=== PATIENT | female | born 2000 | race Caucasian/White ===

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

== ENCOUNTER → 2021-02-12 | Outpatient (CLI) | payer OTHER ==
[2021-02-12 23:45] LABS: Basophils # (A) 0.06 X 10*3/uL (0.00-0.10); Basophils % (A) 0.9 %; Eosinophils # (A) 0.44 X 10*3/uL (0.04-0.35); Eosinophils % (A) 6.6 %; HCT 39.9 % (37.2-46.3); Lymphocytes # (A) 1.72 X 10*3/uL (0.90-5.00); Lymphocytes % (A) 25.6 %; MCH 30.5 pg (27.0-32.0); MCHC 32.6 g/dL (32.0-37.0); MCV 93.7 fL (80.0-97.0); Mean Platelet Volume 11.9 fL (9.5-12.2); Monocytes # (A) 0.32 X 10*3/uL (0.20-1.00); Monocytes % (A) 4.8 %; Neutrophils # (A) 4.14 X 10*3/uL (1.80-7.70); Neutrophils % (A) 61.7 %; Platelet Count 221 X 10*3/uL (140-440); RBC 4.26 X 10*6/uL (4.10-5.20); RDW 12.1 % (11.5-14.5); WBC 6.71 X 10*3/uL (4.50-10.00)
[2021-02-13 01:09] LABS: African American GFR (CKD) 145.6 (60.0-200.0); Anion Gap 12.6 mmol/L (4.00-12.00); BUN/Creat Ratio 17.71 Ratio (12.00-20.00); Blood Urea Nitrogen 12.4 mg/dL (9.0-27.0); Calcium 9.2 mg/dL (8.7-10.3); Carbon Dioxide 19.4 mmol/L (21.6-31.8); Non-African American GFR(CKD) 125.6 (60.0-200.0)
== END | disposition home or self-care (01) ==
LOC: LABWHC1 15:58
PROVIDERS: ATTEND Family Medicine
DX: R00.2 Palpitations (principal)
CPT/HCPCS: 36415; 80048; 84443; 85025

== ENCOUNTER 2021-07-11 23:42 | Emergency (ER) | payer OTHER ==
[2021-07-11 23:51] VITALS: BP 118/70; RESP 18
[2021-07-11] MEDS ORDERED: ACETAMINOPHEN TAB 325 MG TAB PO STA (23:56)
[2021-07-12 01:53] VITALS: PULSE 120; TEMP 98.8
--- NOTE | 2021-07-12 01:54 | ED ---
Fever HPI - General Chief Complaint: Shortness of Breath Stated Complaint: Fever, 24 wks Time Seen by Provider: 07/12/21 01:19 Source: patient, RN notes reviewed, old records reviewed Mode of arrival: ambulatory Limitations: no limitations - History of Present Illness Initial Comments: This is a 20-year-old female DF today for evaluation of fever. Patient Dese for evaluation of fever cough congestion bodyaches pains. Patient is 19 weeks . She is taking Tylenol at home for the fever no other medications. She has no dysuria no diarrhea no nausea nausea vomiting currently. No abdominal pain currently. MD Complaint: fever, malaise -: days(s) Temperature Source: subjective Context: sick contacts Associated Symptoms: chills, myalgias, sore throat Treatments Prior to Arrival: Acetaminophen - Related Data Home Medications Medication Instructions Recorded Confirmed Citalopram Hydrobromide [CeleXA] 10 mg PO DAILY 06/07/16 06/07/16 Melatonin 3 mg PO HS PRN 06/07/16 06/07/16 Previous Rx's Medication Instructions Recorded Ciprofloxacin HCl [Cipro] 500 mg PO Q12HR #28 tablet 01/06/20 Ondansetron Odt [Zofran Odt] 4 mg PO Q8HR PRN 3 Days #9 tab 07/12/20 Allergies Allergy/AdvReac Type Severity Reaction Status Date / Time Penicillins Allergy Rash/Hives Verified 07/12/21 00:04 Review of Systems ROS Statement: Those systems with pertinent positive or pertinent negative responses have been documented in the HPI. ROS Other: All systems not noted in ROS Statement are negative. Past Medical History Past Medical History: No Reported History History of Any Multi-Drug Resistant Organisms: None Reported Past Surgical History: No Surgical Hx Reported Past Psychological History: Anxiety, Depression Smoking Status: Vaper Past Alcohol Use History: None Reported Past Drug Use History: None Reported General Exam Limitations: no limitations General appearance: alert, in no apparent distress Head exam: Present: atraumatic, normocephalic, normal inspection Eye exam: Present: normal appearance, PERRL, EOMI. Absent: scleral icterus, conjunctival injection, periorbital swelling ENT exam: Present: normal exam, mucous membranes moist Neck exam: Present: normal inspection. Absent: tenderness, meningismus, lymphadenopathy Respiratory exam: Present: normal lung sounds bilaterally. Absent: respiratory distress, wheezes, rales, rhonchi, stridor Cardiovascular Exam: Present: normal rhythm, tachycardia, normal heart sounds. Absent: systolic murmur, diastolic murmur, rubs, gallop, clicks GI/Abdominal exam: Present: soft, normal bowel sounds. Absent: distended, tenderness, guarding, rebound, rigid Extremities exam: Present: normal inspection, full ROM, normal capillary refill. Absent: tenderness, pedal edema, joint swelling, calf tenderness Back exam: Present: normal inspection Neurological exam: Present: alert, oriented X3, CN II-XII intact Psychiatric exam: Present: normal affect, normal mood Skin exam: Present: warm, dry, intact, normal color. Absent: rash Course Vital Signs 07/11/21 07/12/21 07/12/21 23:47 01:20 01:52 Temperature 101.2 F H 98.8 F Pulse Rate 132 H 120 H Respiratory 18 18 18 Rate Blood Pressure 118/70 O2 Sat by Pulse 98 97 Oximetry - Reevaluation(s) Reevaluation #1: 07/12/21 Medical record is reviewed Patient symptoms are improved here in the emergency department Patient informed results and questions answered Medical Decision Making - Medical Decision Making 20-year-old female to the emergency department for evaluation 19 weeks with fever. Patient is positive for influenza. Patient encouraged to take Tylenol rest drink a lot of fluids and can be discharged home - Lab Data Lab Results 07/12/21 Range/Units 00:00 Influenza Type A (PCR) Detected A (Not Detectd) Influenza Type B (PCR) Not Detected (Not Detectd) RSV (PCR) Not Detected (Not Detectd) SARS-CoV-2 (PCR) Not Detected (Not Detectd) Disposition Clinical Impression: Fever, Influenza A Disposition: HOME SELF-CARE Condition: Good Instructions (If sedation given, give patient instructions): Influenza (ED) Is patient prescribed a controlled substance at d/c from ED?: No Referrals: William Sibley MD [Primary Care Provider] - 1-2 days
== END 2021-07-12 01:58 | disposition home or self-care (01) ==
LOC: EC 23:42
DX: O98.512 Other viral diseases complicating pregnancy, second trimester (principal); J10.1 Influenza due to other identified influenza virus with other respiratory manifestations; O99.342 Other mental disorders complicating pregnancy, second trimester; F32.A Depression, unspecified; F41.9 Anxiety disorder, unspecified; O99.331 Smoking (tobacco) complicating pregnancy, first trimester; F17.290 Nicotine dependence, other tobacco product, uncomplicated; Z79.899 Other long term (current) drug therapy; Z3A.19 19 weeks gestation of pregnancy; Z88.0 Allergy status to penicillin; Z20.822 Contact with and (suspected) exposure to COVID-19
CPT/HCPCS: 87636; 99283

== ENCOUNTER 2021-09-10 19:59 | Outpatient (CLI) | payer OTHER ==
[2021-09-10 20:46] LABS: Appearance,Urine Clear (Clear); Bacteria,Urine Rare /hpf; Bilirubin,Urine Negative (Negative); Blood,Urine Large (Negative); Color,Urine Yellow; Glucose,Urine (UA) Negative (Negative); Ketones,Urine Negative (Negative); Leukocyte Esterase,Urine Large (Negative); Mucus,Urine Rare /hpf; Nitrite,Urine Negative (Negative); Protein,Urine Trace (Negative); RBC,Urine >182 /hpf (0-5); Specific Gravity,Urine 1.013 (1.001-1.035); Squamous Epithelial Cell,Urine 3 /hpf (0-4); Urobilinogen,Urine <2.0 mg/dL (<2.0); WBC,Urine 59 /hpf (0-5)
[2021-09-10 21:14] VITALS: BP 129/75; PULSE 100; RESP 18; TEMP 98
--- NOTE | 2021-09-27 10:55 | P.MSEPDOC ---
Presenting Problems - Arrival Data Date of Arrival on Unit: 09/10/21 Time of Arrival on Unit: 19:59 Mode of Transport: Ambulatory - Complaint OB-Reason for Admission/Chief Complaint: Other Comment: Bloody Urine, cramping. Medical History - Information : 1 Para: 0 Term: 0 : 0 Abortions: Spontaneous or Elective: 0 Number of Living Children: 0 - Gestational Age Gestational Age by CHARU (wks/days): 33 Weeks and 1 Days Review of Systems - Review of Systems Constitutional: No problems Breast: No problems ENT: No problems Cardiovascular: No problems Respiratory: No problems Gastrointestinal: No problems Genitourinary: Increased frequency Musculoskeletal: No problems Neurological: No problems Skin: No problems Vital Signs - Temperature Temperature: 98.0 F Temperature Source: Oral - Pulse Right Brachial Pulse Rate: 100 Pulse Assessment Method: Automatic Cuff - Respirations Respiratory Rate: 18 Oxygen Delivery Method: Room Air O2 Sat by Pulse Oximetry: 98 - Blood Pressure Right Arm Blood Pressure: 129/75 Blood Pressure Mean: 93 Blood Pressure Source: Automatic Cuff Physician Notification - Physician Notified Physician Notified Date: 09/10/21 Physician Notified Time: 20:55 Physician: Fidencio Sánchez New Order Received: Yes - Notification Comment Comment: Dr. Sánchez called. aware of pt c/o. Report given. Reactive NST. VS WNL. No contractions noted per monitor. UA results readback to Orders to discharge pt home. to send in AB[facility] script to [facility] [address]. RN to instruct pt to knot picker cloth prescription after d/c. Maternal Triage Index - Non-Urgent/Priority 4 Non-Urgent Priority 4: Yes Criteria Met for Priority 4: Bloody Urine, frequency, cramping. Disposition - Disposition OB Disposition: Discharge to home Discharge Date: 09/10/21 Discharge Time: 21:00 I agree with the RN Medical Screening Exam: Yes Physician's MSE Comment: I have neither seen nor examined the patient. Case reviewed; plan agreed upon as documented in EMR&OBIX.: Yes Diagnosis: RELATED CONDITIONS, UNSPECIFIED, THIRD TRIMESTER
== END 2021-09-10 21:00 | disposition home or self-care (01) ==
LOC: FBPOP 19:59
PROVIDERS: ATTEND Obstetrics & Gynecology
DX: O26.93 Pregnancy related conditions, unspecified, third trimester (principal); Z3A.33 33 weeks gestation of pregnancy
CPT/HCPCS: 59025; 81001; G0463; 99213

== ENCOUNTER 2021-10-22 06:00 | Inpatient (IN) | payer OTHER ==
[2021-10-22] MEDS ORDERED: CARBOPROST TROMETHAMINE 250 MCG/ML 1 ML AMP IM PRN (06:21)
[2021-10-22] MEDS ORDERED: OXYTOCIN 10 UNIT/ML 1 ML VIAL IM PRN (06:21)
[2021-10-22] MEDS ORDERED: LIDOCAINE 0.5% (PF) 5 MG/ML (50 ML SDV) SQ PRN (06:21)
[2021-10-22] MEDS ORDERED: TERBUTALINE 1 MG/ML VIAL SQ PRN (06:21)
[2021-10-22] MEDS ORDERED: METHYLERGONOVINE 0.2 MG/ML 1 ML AMP IM PRN (06:21)
[2021-10-22] MEDS ORDERED: OXYTOCIN 30 UNITS/500 ML NS 30 UNIT in SALINE 1 500ML.BAG IV SCH (06:30)
[2021-10-22] MEDS: LACTATED RINGERS 1,000 ML IV SCH ×3 (06:31→14:36)
[2021-10-22 06:58] LABS: Basophils # (A) 0.1 k/uL (0-0.2); Basophils % (A) 0 %; Eosinophils # (A) 0.4 k/uL (0-0.7); Eosinophils % (A) 3 %; HCT 33.1 % (34.0-46.0); Lymphocytes # (A) 2.5 k/uL (1.0-4.8); Lymphocytes % (A) 17 %; MCH 29.6 pg (25.0-35.0); MCHC 33.2 g/dL (31.0-37.0); MCV 89.2 fL (80.0-100.0); Mean Platelet Volume 10.1; Monocytes # (A) 0.6 k/uL (0-1.0); Monocytes % (A) 4 %; Neutrophils # (A) 11.2 k/uL (1.3-7.7); Neutrophils % (A) 75 %; Platelet Count 232 k/uL (150-450); RBC 3.71 m/uL (3.80-5.40); RDW 13.5 % (11.5-15.5); WBC 14.9 k/uL (4.0-11.0)
--- NOTE | 2021-10-22 07:43 | P.HPOB ---
History of Present Illness H&P Date: 10/22/21 Chief Complaint: Here for induction of labor This is a 21-year-old white female 1 para 0 EDC 10/29/2021 at 39 weeks gestation who presents today for induction with a history of vascular latex noted sonographically in the placenta. She has been followed by weekly non stress testing, all of which has been reassuring. She denies fluid leakage or vaginal bleeding. Fetus is been active throughout the . Past medical history is significant for anxiety. Past surgical history is negative. Current medications vitamins daily. ALLERGIES include penicillin, reaction unknown stated. Social history patient is single, father of the baby is present. She works at a local [employer]. She denies alcohol tobacco or drug use. history blood type is A+, rubella status immune. VDRL testing, urine culture, gonorrhea and chlamydia cultures, hepatitis B surface antigen, HIV testing, group B strep cultures all negative. One-hour Glucola 116. On exam patient is 5 foot 3 inches, 170 pounds, initial blood pressure 139/81. The general physical exam is within normal limits. Chest is clear in all rincon. Extremities reveal no edema. Cervix is 3 cm dilated, 80% effaced, -2 station, vertex presentation. Artificial amniorrhexis reveals clear fluid. heart rate is consistent with reactive NST. No uterine contractions are noted at this time. Impression: 39 week intrauterine , sonographic evidence of large vascular latex in the placenta, otherwise all signs reassuring. Plan: Continue oxytocin per hospital protocol. Continue close maternal and surveillance. Analgesic options have been reviewed. Anticipate normal spontaneous vaginal delivery. Placenta will be sent to pathology for further evaluation. Review of Systems Constitutional: Reports as per HPI Past Medical History Past Medical History: No Reported History History of Any Multi-Drug Resistant Organisms: None Reported Past Surgical History: No Surgical Hx Reported Past Anesthesia/Blood Transfusion Reactions: No Reported Reaction Past Psychological History: Anxiety, Depression Smoking Status: Never smoker Past Alcohol Use History: None Reported Past Drug Use History: None Reported - Past Family History Mother Family Medical History: No Reported History Medications and Allergies Home Medications Medication Instructions Recorded Confirmed Type Pnv No.95/Ferrous Fum/Folic AC 1 tab PO ONCE 09/10/21 10/22/21 History [ Multivitamin Tablet] Allergies Allergy/AdvReac Type Severity Reaction Status Date / Time Penicillins Allergy Rash/Hives Verified 09/10/21 20:09 Exam Vital Signs Temp Pulse Resp BP 10/22/21 06:17 96.7 F L 93 16 139/81 Intake and Output 10/21/21 10/22/21 10/22/21 22:59 06:59 14:59 Other: Weight 77.111 kg See dictation under HPI please Results Result Diagrams: 10/22/21 06:40 Abnormal Lab Results - Last 24 Hours (Table) 10/22/21 Range/Units 06:40 WBC 14.9 H (4.0-11.0) k/uL RBC 3.71 L (3.80-5.40) m/uL Hgb 11.0 L (11.4-16.0) gm/dL Hct 33.1 L (34.0-46.0) % Neutrophils # 11.2 H (1.3-7.7) k/uL Assessment and Plan Assessment: 39 week intrauterine , large vascular lakes noted sonographically in the placenta, here for induction of labor, all signs reassuring. Plan: Oxytocin per hospital protocol. Continue close maternal and surveillance. Analgesic options reviewed. Anticipate normal spontaneous vaginal delivery. Time with Patient: Less than 30
[2021-10-22] MEDS ORDERED: diphenhydrAMINE ELIXIR 25 MG/10 ML CUP PO PRN (16:09)
[2021-10-22] MEDS ORDERED: BENZOCAINE/MENTHOL SPRAY 1 GM/SPRAY AEROSOL TOPICAL PRN (16:09)
[2021-10-22] MEDS ORDERED: ZOLPIDEM 5 MG TAB PO PRN (16:09)
[2021-10-22] MEDS ORDERED: LANOLIN CREAM 5 GM TUBE TOPICAL PRN (16:09)
[2021-10-22] MEDS ORDERED: diphenhydrAMINE 50 MG CAP PO PRN (16:09)
[2021-10-22] MEDS ORDERED: SIMETHICONE 80 MG CHEWABLE PO PRN (16:09)
[2021-10-22] MEDS ORDERED: diphenhydrAMINE 25 MG CAP PO PRN (16:09)
[2021-10-22] MEDS ORDERED: HYDROCORTISONE 2.5% RECTAL CREAM 30 GM TUBE RECTAL PRN (16:09)
[2021-10-22] MEDS ORDERED: ACETAMINOPHEN TAB 325 MG TAB PO PRN (16:09)
[2021-10-22] MEDS ORDERED: diphenhydrAMINE 50 MG/ML 1 ML VIAL IVP PRN ×2 (16:09)
--- NOTE | 2021-10-22 16:09 | P.PROBDLV ---
Vaginal Delivery Note - . Vaginal Delivery Note: This is a 21-year-old female 1 para 0 EDC 10/29/2021 at 39 weeks gestation who presented for induction, with sonographic evidence of increased vascular watkins noted in the placenta. She has been followed by weekly nonstress testing, all of it has been reactive. Please see admitting history and physical for details. Patient was admitted and artificial amniorrhexis revealed clear fluid. And titrated per hospital protocol. Ultimately epidural was placed per her request, placement unremarkable. Patient progressed to the first stage of labor was judged to be completely dilated at 1518 hrs. She was allowed to "labor down" for approximate 20 minutes. Perineal body was then prepped and draped in usual sterile fashion. With excellent maternal expulsive efforts the 's head very quickly crowned in the occiput anterior position. There is no nuchal cord noted. The left or anterior shoulder was gently delivered from underneath the pubic symphysis at which time the oropharynx, nasopharynx, and external nares were bulb suctioned. Patient was officially delivered of a liveborn female infant at 1548 hrs. Umbilical cord was clamped and ligated, she was handed to waiting nurses for evaluation where scores of 8 and 9 at one and 5 minutes respectively were given. Placenta delivered spontaneously, it was inspected and noted to be intact with trivascular cord at 1556 hrs. It was sent to pathology for further evaluation. Uterus is then massaged. Careful inspection of the cervix, vagina, perineum, periurethral, and perirectal areas revealed a small right labial first-degree perineal laceration easily repaired in the usual fashion with repeat suture. Excellent reapproximation was noted. All sponge needle and enhancement counts are correct. Total estimated blood loss 200 mL's. Infant weighs 7 lbs. 12 oz. or 3520 g. Patient and her family are allowed to begin the bonding experience in the LDR.
[2021-10-22] MEDS: IBUPROFEN 600 MG TAB PO SCH (18:29)
[2021-10-22] MEDS: SENNA LEAF EXTRACT SYRUP 528 MG/15 ML CUP PO SCH (22:42)
[2021-10-22] MEDS: SENNOSIDES-DOCUSATE SODIUM 1 EACH TAB PO SCH (22:43)
[2021-10-23] MEDS: IBUPROFEN 600 MG TAB PO SCH ×5 (05:32→18:12)
[2021-10-23] MEDS: SENNOSIDES-DOCUSATE SODIUM 1 EACH TAB PO SCH ×2 (08:05→19:45)
[2021-10-23] MEDS: SENNA LEAF EXTRACT SYRUP 528 MG/15 ML CUP PO SCH (09:07)
--- NOTE | 2021-10-23 09:08 | P.DS ---
Providers Date of admission: 10/22/21 06:05 Expected date of discharge: 10/23/21 Attending physician: Tatyana Tovar Primary care physician: Stated None Hospital Course: This is a 21-year-old white female 1 para 0 EDC 10/29/2021 who presented at 39 weeks with a favorable cervix for induction of labor, is remarkable for prominent vascular [place] noted sonographically in the placenta. otherwise unremarkable, weekly nonstress testing reactive, please see dictated history and physical for details. Patient delivered spontaneously a liveborn female infant with scores of 8 and 9 at one and 5 minutes respectively she weighed 7 lbs. 12 oz. or 3520 g. There was a first-degree perineal laceration easily repaired. Please see dictated delivery note for details. The patient this morning is doing quite well. She is voiding, ambulating, passing flatus without difficulty. Vital signs are stable and she is afebrile. Fundus is firm and in the midline, symmetric and 18 week size. Extremities are negative for edema. Randolph is doing well. Placenta was sent to pathology for further evaluation. Plan patient is judged to be in very good condition for discharge home. She will follow-up with me in the office in 6 weeks. I have reminded her no intercourse, tampons or douching. She will use [id number] Advil or Aleve, or ibuprofen as needed for pain. She will call with any fevers shakes or chills, foul smelling or copious lochia, with the passage of large blood clots, or indeed with any concerns. Patient has good family support and appears to be doing well with the . Assessment: Doing well first day Patient Condition at Discharge: Good Plan - Discharge Summary Discharge Rx Participant: No New Discharge Prescriptions: No Action Pnv No.95/Ferrous Fum/Folic AC [ Multivitamin Tablet] 1 tab PO ONCE Discharge Medication List Pnv No.95/Ferrous Fum/Folic AC [ Multivitamin Tablet] 1 tab PO ONCE 09/10/21 [History] Follow up Appointment(s)/Referral(s): Tatyana Tovar MD [STAFF PHYSICIAN] - 6 Weeks Discharge Disposition: HOME SELF-CARE
[2021-10-24 09:28] VITALS: BP 111/68; PULSE 80; RESP 14; TEMP 97.9
[2021-10-24] MEDS: SENNOSIDES-DOCUSATE SODIUM 1 EACH TAB PO SCH ×2 (09:30→13:15)
[2021-10-24] MEDS: IBUPROFEN 600 MG TAB PO SCH ×2 (09:30→11:18)
== END 2021-10-24 15:15 | disposition home or self-care (01) | DRG 807 ==
LOC: 4FBP 06:05
PROVIDERS: ADMIT Obstetrics & Gynecology; ATTEND Obstetrics & Gynecology
PROC: 10E0XZZ Delivery of Products of Conception, External Approach (ICD-10-PCS; principal; 2021-10-22)
PROC: 0HQ9XZZ Repair Perineum Skin, External Approach (ICD-10-PCS; 2021-10-22)
PROC: 10907ZC Drainage of Amniotic Fluid, Therapeutic from Products of Conception, Via Natural or Artificial Opening (ICD-10-PCS; 2021-10-22)
PROC: 3E033VJ Introduction of Other Hormone into Peripheral Vein, Percutaneous Approach (ICD-10-PCS; 2021-10-22)
PROC: 4A0HXCZ Measurement of Products of Conception, Cardiac Rate, External Approach (ICD-10-PCS; 2021-10-22)
DX: O99.344 Other mental disorders complicating childbirth (principal); Z37.0 Single live birth; O70.0 First degree perineal laceration during delivery; Z88.0 Allergy status to penicillin; F32.A Depression, unspecified; F41.9 Anxiety disorder, unspecified; Z3A.39 39 weeks gestation of pregnancy
CPT/HCPCS: 85025; 86850; 86900; 86901

== ENCOUNTER → 2023-01-20 | Outpatient (CLI) | payer OTHER ==
[2023-01-20 16:58] LABS: T4, Free (Free Thyroxine) 1.39 ng/dL (0.80-1.80)
[2023-01-20 19:56] LABS: Gliadin AB IgA, Deaminated Negative (Negative); Gliadin AB IgG, Deaminated Negative (Negative); Gliadin AB IgG, Unit 0.8 U/mL
== END | disposition home or self-care (01) ==
LOC: LABWHC1 13:08
PROVIDERS: ATTEND Internal Medicine Gastroenterology
DX: K52.9 Noninfective gastroenteritis and colitis, unspecified (principal)
CPT/HCPCS: 36415; 83516; 84439; 84443; 85652

== ENCOUNTER 2023-12-09 16:38 | Emergency (ER) | payer OTHER ==
[2023-12-09 16:43] VITALS: RESP 18
--- NOTE | 2023-12-09 17:03 | ED ---
Female Urogenital HPI - General Chief complaint: Urogenital Stated complaint: painful urination/15 wks Time Seen by Provider: 12/09/23 17:01 Source: patient, RN notes reviewed Mode of arrival: ambulatory Limitations: no limitations - History of Present Illness Initial comments: 23-year-old female at 15 weeks gestation presenting with dysuria x 1 day with associated urinary frequency, urinary urgency, and suprapubic pain. Denies fever, chills, vomiting, back pain. Denies vaginal discharge. Follows regularly with OB for care. - Related Data Home Medications Medication Instructions Recorded Confirmed Pnv No.95/Ferrous Fum/Folic AC 1 tab PO ONCE 09/10/21 10/22/21 [ Multivitamin Tablet] Previous Rx's Medication Instructions Recorded Nitrofurantoin Monohyd/M-Cryst 100 mg PO Q12HR 5 Days #10 cap 12/09/23 [Macrobid] Allergies Allergy/AdvReac Type Severity Reaction Status Date / Time Penicillins Allergy Rash/Hives Verified 09/10/21 20:09 Review of Systems ROS Statement: Those systems with pertinent positive or pertinent negative responses have been documented in the HPI. ROS Other: All systems not noted in ROS Statement are negative. Past Medical History Past Medical History: No Reported History History of Any Multi-Drug Resistant Organisms: None Reported Past Surgical History: No Surgical Hx Reported Past Anesthesia/Blood Transfusion Reactions: No Reported Reaction Past Psychological History: Anxiety, Depression Smoking Status: Never smoker Past Alcohol Use History: None Reported Past Drug Use History: None Reported - Past Family History Mother Family Medical History: No Reported History General Exam Limitations: no limitations General appearance: alert, in no apparent distress Head exam: Present: atraumatic, normocephalic, normal inspection GI/Abdominal exam: Present: soft, tenderness (Suprapubic tenderness to palpation, no abdominal tenderness), normal bowel sounds. Absent: distended, guarding, rebound, rigid Extremities exam: Present: normal inspection, full ROM, normal capillary refill. Absent: tenderness, pedal edema, joint swelling, calf tenderness Back exam: Present: normal inspection. Absent: CVA tenderness (R), CVA tenderness (L) Neurological exam: Present: alert, oriented X3 Psychiatric exam: Present: normal affect, normal mood Skin exam: Present: warm, dry, intact, normal color. Absent: rash Course Vital Signs 12/09/23 16:40 Temperature 99.0 F Pulse Rate 107 H Respiratory 18 Rate Blood Pressure 124/80 O2 Sat by Pulse 98 Oximetry Medical Decision Making - Medical Decision Making Was pt. sent in by a medical professional or institution ([facility] Crawley, [employer], urgent care, hospital, or skilled nursing...) When possible be specific @ -No Did you speak to anyone other than the patient for history (EMS, parent, family, police, friend...)? What history was obtained from this source @ -No Did you review nursing and triage notes (agree or disagree)? Why? @ -I reviewed and agree with nursing and triage notes Were old charts reviewed (outside hosp., previous admission, EMS record, old EKG, old radiological studies, urgent care reports/EKG's, skilled nursing records)? Report findings @ -No old charts were reviewed Differential Diagnosis (chest pain, altered mental status, abdominal pain women, abdominal pain men, vaginal bleeding, weakness, fever, dyspnea, syncope, hea dache, dizziness, GI bleed, back pain, seizure, CVA, palpatations, mental health, musculoskeletal)? @ -Differential Abdominal Pain Women: Appendicitis, Cholecystitis, diverticulosis, ischemic bowel, pancreatitis, hepatitis, UTI, gastroenteritis, AAA, incarcerated hernia, bowel obstruction, constipation, inflammatory bowel, hepatitis, peptic ulcer disease, splenic infarction, perforated viscus, vulvitis, ovarian torsion, PID, kidney stone, placenta abruption, this is not meant to be an all-inclusive list EKG interpreted by me (3pts min.). @ -None X-rays interpreted by me (1pt min.). @ -None done CT interpreted by me (1pt min.). @ -None done U/S interpreted by me (1pt. min.). @ -None done What testing was considered but not performed or refused? (CT, X-rays, U/S, labs)? Why? @ -Imaging/labs not indicated as there is no abdominal pain or tenderness What meds were considered but not given or refused? Why? @ -None Did you discuss the management of the patient with other professionals (pro fessionals i.e. MAND[facility] Crawley, [employer], lab, RT, psych nurse, medical social worker, water chaser, teacher, delinquency prevention officer, telehealth case manager)? Give summary @ -No Was smoking cessation discussed for >3mins.? @ -No Was critical care preformed (if so, how long)? @ -No Were there social determinants of health that impacted care today? How? (Homelessness, low income, unemployed, alcoholism, drug addiction, transportation, low edu. Level, literacy, decrease access to med. care, fpc, rehab)? @ -No Was there de-escalation of care discussed even if they declined (Discuss DNR or withdrawal of care, Hospice)? DNR status @ -No What co-morbidities impacted this encounter? (DM, HTN, Smoking, COPD, CAD, Cancer, CVA, ARF, Chemo, Hep., AIDS, mental health diagnosis, sleep apnea, morbid obesity)? @ -None Was patient admitted / discharged? Hospital course, mention meds given and route, prescriptions, significant lab abnormalities, going to OR and other pertinent info. @ -Patient was discharged. Patient was seen and evaluated for suprapubic pain x 1 day with associated urinary urgency, urinary frequency, and dysuria. Patient is at approximately 15 weeks gestation. Patient is afebrile, no acute distress. Denies red flag symptoms such as vomiting, fever, or vaginal bleeding. Denies concern for STDs and declines STD testing today. There is mild suprapubic tenderness upon examination however no abdominal tenderness or CVA t enderness. heart tones performed by OB nurse were 140s to 150s. Urinalysis remarkable for minimal white blood cells. Urine culture sent. Discussed findings with patient. Given patient's symptoms are consistent with UTI, I would like to treat with antibiotics at this time. Prescribed Macrobid due to severe penicillin allergy. Patient is agreeable to plan. Return precautions discussed. Advised to follow-up with OB in 1 to 3 days for reevaluation. Case was discussed with my ED attending Dr. Ochoa. Patient discharged in stable condition. Undiagnosed new problem with uncertain prognosis? @ -No Drug Therapy requiring intensive monitoring for toxicity (Heparin, Nitro, Insulin, Cardizem)? @ -No Were any procedures done? @ -No Diagnosis/symptom? @ -Urinary tract infection in Acute, or Chronic, or Acute on Chronic? @ -Acute Uncomplicated (without systemic symptoms) or Complicated (systemic symptoms)? @ -Uncomplicated Side effects of treatment? @ -No Exacerbation, Progression, or Severe Exacerbation? @ -No Poses a threat to life or bodily function? How? (Chest pain, [place], [place], pneumonia, PE, COPD, DKA, ARF, appy, cholecystitis, CVA, Diverticulitis, Homicidal, Suicidal, threat to staff... and all critical care pts) @ -Not at this time - Lab Data Lab Results 12/09/23 Range/Units 17:23 Urine Color Colorless Urine Appearance Cloudy H (Clear) Urine pH 6.5 (5.0-8.0) Ur Specific Frederic 1.021 (1.001-1.035) Urine Protein Negative (Negative) Urine Glucose (UA) Negative (Negative) Urine Ketones Negative (Negative) Urine Blood Trace H (Negative) Urine Nitrite Negative (Negative) Urine Bilirubin Negative (Negative) Urine Urobilinogen <2.0 (<2.0) mg/dL Ur Leukocyte Esterase Moderate H (Negative) Urine RBC 1 (0-5) /hpf Urine WBC 4 (0-5) /hpf Ur Squamous Epith Cells 5 H (0-4) /hpf Amorphous Sediment Occasional H (None) /hpf Urine Mucus Rare H (None) /hpf Disposition Clinical Impression: Urinary tract infection Disposition: HOME SELF-CARE Condition: Stable Instructions (If sedation given, give patient instructions): Urinary Tract Infection in (ED) Additional Instructions: Take antibiotic as prescribed. Follow-up with OB in 1 to 3 days. Please return to the Emergency Department if symptoms worsen or any other concerns. Prescriptions: Nitrofurantoin Monohyd/M-Cryst [Macrobid] 100 mg PO Q12HR 5 Days #10 cap Is patient prescribed a controlled substance at d/c from ED?: No Referrals: William Sibley MD [Primary Care Provider] - 1-2 days Time of Disposition: 18:22
[2023-12-09 17:55] LABS: Amorphous Sediment,Urine Occasional /hpf; Appearance,Urine Cloudy (Clear); Bilirubin,Urine Negative (Negative); Blood,Urine Trace (Negative); Color,Urine Colorless; Glucose,Urine (UA) Negative (Negative); Ketones,Urine Negative (Negative); Leukocyte Esterase,Urine Moderate (Negative); Mucus,Urine Rare /hpf; Nitrite,Urine Negative (Negative); PH, Urine 6.5 (5.0-8.0); Protein,Urine Negative (Negative); RBC,Urine 1 /hpf (0-5); Specific Gravity,Urine 1.021 (1.001-1.035); Squamous Epithelial Cell,Urine 5 /hpf (0-4); Urobilinogen,Urine <2.0 mg/dL (<2.0); WBC,Urine 4 /hpf (0-5)
[2023-12-09 18:56] VITALS: BP 125/81; PULSE 97; TEMP 98.9
== END 2023-12-09 18:56 | disposition home or self-care (01) ==
LOC: EC 16:38
DX: O23.42 Unspecified infection of urinary tract in pregnancy, second trimester (principal); N39.0 Urinary tract infection, site not specified; Z88.0 Allergy status to penicillin; Z3A.15 15 weeks gestation of pregnancy
CPT/HCPCS: 81001; 99283

== ENCOUNTER 2024-03-06 23:00 | Outpatient (CLI) | payer OTHER ==
[2024-03-07] LABS: Amorphous Sediment,Urine Rare /hpf; Appearance,Urine Clear (Clear); Bacteria,Urine Occasional /hpf; Bilirubin,Urine Negative (Negative); Blood,Urine Negative (Negative); Color,Urine Colorless; Glucose,Urine (UA) Negative (Negative); Ketones,Urine Negative (Negative); Leukocyte Esterase,Urine Moderate (Negative); Mucus,Urine Rare /hpf; Nitrite,Urine Negative (Negative); Protein,Urine Negative (Negative); RBC,Urine 1 /hpf (0-5); Specific Gravity,Urine 1.011 (1.001-1.035); Squamous Epithelial Cell,Urine 2 /hpf (0-4); Urobilinogen,Urine <2.0 mg/dL (<2.0); WBC,Urine 11 /hpf (0-5)
[2024-03-07 00:48] VITALS: BP 128/65; PULSE 95; RESP 16; TEMP 97.4
--- NOTE | 2024-05-06 11:22 | P.MSEPDOC ---
Presenting Problems - Arrival Data Date of Arrival on Unit: 03/07/24 Time of Arrival on Unit: 23:00 Mode of Transport: Wheelchair - Complaint OB-Reason for Admission/Chief Complaint: Possible Onset of Labor, Decreased Movement Comment: Patient presents to triage with back and abdominal pain rating it 7.5/10 and decreased movement Medical History - Information : 2 Para: 1 Term: 1 : 0 Abortions: Spontaneous or Elective: 0 Number of Living Children: 1 - Gestational Age Gestational Age by CHARU (wks/days): 80 Weeks and 6 Days Review of Systems - Review of Systems Constitutional: No problems Breast: No problems ENT: No problems Cardiovascular: No problems Respiratory: No problems Gastrointestinal: No problems Genitourinary: No problems Musculoskeletal: No problems Neurological: No problems Skin: No problems Vital Signs - Temperature Temperature: 97.4 F Temperature Source: Temporal Artery Scan - Pulse Pulse Oximetery Pulse Rate: 95 Pulse Assessment Method: Pulse Oximetry - Respirations Respiratory Rate: 16 Oxygen Delivery Method: Room Air O2 Sat by Pulse Oximetry: 98 - Blood Pressure Right Arm Blood Pressure: 128/65 Blood Pressure Mean: 86 Blood Pressure Source: Automatic Cuff Physician Notification - Physician Notified Physician Notified Date: 03/07/24 Physician Notified Time: 00:01 Physician: Fidencio Sánchez Order Received: Yes (Discharge) Maternal Triage Index - Maternal Triage Index Presenting for scheduled procedure w/no complaint: No - Stat/Priority 1 Stat Priority 1: No - Urgent/Priority 2 Urgent Priority 2: No - Prompt/Priority 3 Prompt Priority 3: Yes Criteria Met for Priority 3: Patient presents to triage with back and abdominal pain rating it 7.5/10 and decreased movement Disposition - Disposition OB Disposition: Discharge to home Discharge Date: 03/07/24 Discharge Time: 00:48 I agree with the RN Medical Screening Exam: Yes Physician's MSE Comment: I have neither seen nor examined the patient. I agree with the assessment presuming the actual gestational age is 30-5/7 weeks, not 80-5/7 weeks. Case reviewed; plan agreed upon as documented in EMR&OBIX.: Yes Diagnosis: RELATED CONDITIONS, UNSPECIFIED, THIRD TRIMESTER
== END 2024-03-07 00:49 ==
LOC: FBPOP 23:00
PROVIDERS: ATTEND Obstetrics & Gynecology
DX: O26.93 Pregnancy related conditions, unspecified, third trimester (principal); O99.323 Drug use complicating pregnancy, third trimester; F12.90 Cannabis use, unspecified, uncomplicated; Z88.0 Allergy status to penicillin; Z3A.30 30 weeks gestation of pregnancy
CPT/HCPCS: 59025; 81001; G0463; 99213

== ENCOUNTER → 2024-08-08 | Outpatient (CLI) | payer OTHER ==
[2024-08-08 19:53] LABS: Eosinophils % (A) 5.1 %; HCT 45.1 % (37.2-46.3); HGB 14.4 g/dL (12.0-15.0); Lymphocytes # (A) 2.73 X 10*3/uL (0.90-5.00); Lymphocytes % (A) 27.6 %; MCH 29.6 pg (27.0-32.0); MCHC 31.9 g/dL (32.0-37.0); MCV 92.8 FL (80.0-97.0); Mean Platelet Volume 11.5 FL (9.5-12.2); Monocytes % (A) 5.1 %; NRBC Per 100 WBC 0 X 10*3/uL (0.00-0.01); Neutrophils # (A) 6.02 X 10*3/uL (1.80-7.70); Neutrophils % (A) 60.7 %; Platelet Count 333 X 10*3/uL (140-440); RBC 4.86 X 10*6/uL (4.10-5.20); RDW 12.8 % (11.5-14.5)
== END | disposition home or self-care (01) ==
LOC: LABWHC1 12:35
PROVIDERS: ATTEND Obstetrics & Gynecology Obstetrics
DX: Z01.812 Encounter for preprocedural laboratory examination (principal)
CPT/HCPCS: 36415; 85025

== ENCOUNTER 2024-08-16 07:21 | Day surgery (SDC) | payer OTHER ==
[2024-08-10 15:43] VITALS: BMI 28.3
[~2024-08-16 07:21] MED LIST: LIDOCAINE 1% (10MG/ML) FOR IV START INTRADERMA PRN; Pre Op ABX Message 1 EACH MISC MISCELLANE ONE; droPERidol 2.5 MG/ML VIAL IVP ONE
[2024-08-16] MEDS: IV FLUID CONTINUATION 1,000 ML IV ONE (07:39)
[2024-08-16] MEDS: LACTATED RINGERS 1,000 ML IV SCH (08:01)
[2024-08-16] MEDS: DEXAMETHASONE SOD PHOSPHATE 4 MG/ML 1 ML VIAL IV ONE (08:03)
[2024-08-16] MEDS: ONDANSETRON 4 MG/2 ML VIAL IVP ONE (08:03)
[2024-08-16] MEDS ORDERED: HYDROmorphone (PF) 1 MG/ML ONE (08:33)
[2024-08-16] MEDS ORDERED: GLYCOPYRROLATE 0.2 MG/ML 2 ML VIAL ONE (08:33)
[2024-08-16] MEDS ORDERED: fentaNYL (PF) 50 MCG/ML 2 ML AMP ONE (08:33)
[2024-08-16] MEDS ORDERED: KETOROLAC 15 MG/ML 1 ML VIAL ONE (08:33)
[2024-08-16] MEDS ORDERED: MIDAZOLAM 2 MG/2 ML VIAL ONE (08:33)
[2024-08-16] MEDS ORDERED: PROPOFOL 10 MG/ML 20 ML VIAL IV ONE (08:33)
[2024-08-16] MEDS ORDERED: SUCCINYLCHOLINE CHLORIDE 200 MG/10 ML VIAL IV ONE (08:33)
[2024-08-16] MEDS ORDERED: LIDOCAINE 1% INJ 10MG/ML (20 ML MDV) ONE (08:33)
[2024-08-16] MEDS ORDERED: NEOSTIGMINE 1 MG/ML 10 ML VIAL ONE (08:33)
[2024-08-16] MEDS ORDERED: ROCURONIUM 10 MG/ML (5 ML VIAL) IV ONE (08:33)
[2024-08-16] MEDS: BUPIVACAINE (PF) 0.25% 30 ML VIAL SQ ONE (09:05)
--- NOTE | 2024-08-16 09:26 | P.OP ---
Date of Procedure: 08/16/24 Preoperative Diagnosis: Undesired fertility, family-planning Postoperative Diagnosis: Same Procedure(s) Performed: Laparoscopic tubal ligation with Filshie clips Anesthesia: GETA Surgeon: Mary Benedict Estimated Blood Loss (ml): 15 IV fluids (ml): 600 Urine output (ml): 200 Pathology: none sent Condition: stable Disposition: observation Indications for Procedure: Patient request for permanent sterilization Operative Findings: Patient request for permanent sterilization. Description of Procedure: Patient was seen in the preoperative area where informed consent was obtained permanence of procedure was reviewed. All questions were answered and patient wished to proceed. Patient was taken back to the operating suite where general anesthesia was obtained without difficulty by the anesthesia department. She was prepped and draped in the normal sterile fashion in the dorsal lithotomy position. A red rubber catheter was used to drain the bladder of clear yellow urine. A speculum was placed the anterior lip of the cervix was visualized and grasped with a single-tooth tenaculum and acorn uterine manipulator was advanced into the cervical os as a means to manipulate the uterus throughout the procedure. Speculum was removed. Attention was then turned to the patient's abdomen where in the umbilical fold a small skin incision is made. Through this incision the Veress needle was placed. Unable to enter the peritoneum with the Veress needle therefore a 5 mm trocar and sleeve with the CO2 gas attached was placed through the skin incision and toward the peritoneum with the laparoscope in place. Direct visualization into the abdomen was performed. CO2 insufflation was allowed to occur. Uterus was elevated and normal anatomy was appreciated. Additional port site was placed at 10 cm lateral and 3 cm inferior the midline port this is a 5 mm port placed through the direct visualization. The Filshie clip applicator was then introduced into the abdomen where the left fallopian tube was grasped elevated and clamped. This was then repeated on the opposite side. Complete cross-section closure was appreciated pictures were taken. At this time all instruments were removed from the patient's abdomen. All counts were to be correct x 2 at the end of the procedure. Skin incisions were closed with 4-0 Vicryl in a subcuticular fashion. Steri-Strips and sterile dressings were applied. All instruments were removed from the patient's vaginal vault. A small amount of bleeding was noted after removal of the single-tooth tenaculum from the anterior lip of the cervix. He stasis was appreciated after application of silver nitrate. Once again all counts were correct x 2 at the end of the procedure. Patient tolerated procedure well and was taken the recovery room awake in stable condition.
[2024-08-16 09:29] VITALS: TEMP 97
[2024-08-16] MEDS: HYDROmorphone 0.5 MG/0.5 ML SYRINGE IVP PRN (09:32)
[2024-08-16 09:49] VITALS: RESP 16
[2024-08-16] MEDS: diphenhydrAMINE 50 MG/ML 1 ML VIAL IVP PRN (09:57)
[2024-08-16] MEDS: LACTATED RINGERS 1,000 ML IV ONE (10:13)
[2024-08-16 11:05] VITALS: BP 109/63; PULSE 61
== END 2024-08-16 11:16 | disposition home or self-care (01) ==
LOC: OR 07:21
PROVIDERS: ATTEND Obstetrics & Gynecology Obstetrics
DX: Z30.2 Encounter for sterilization (principal)
CPT/HCPCS: 81025; 58671; J2250; J0330; J1200; J1100; J2710; J2405; J2003; J3010; J1171 ×2; J1885; J2704; J0665; J1596